=== PATIENT | female | born 1995 | race Caucasian/White ===

== ENCOUNTER → 2017-11-17 | Outpatient (CLI) | payer OTHER ==
[2017-11-21 09:41] LABS: HEPATITIS B SURFACE ANTIBODY 10.2 (()); HEPATITIS C VIRUS ANTIBODY Negative (())
== END ==
LOC: LAB 11:24
PROVIDERS: Internal Medicine
DX: Z77.21 Contact with and (suspected) exposure to potentially hazardous body fluids (principal)